=== PATIENT | female | born 1995 | race Caucasian/White ===

== ENCOUNTER 2018-12-04 19:48 | Emergency (ER) | payer OTHER, SELFPAY ==
[2018-12-04 20:00] VITALS: BP 114/79; PULSE 79; RESP 15; TEMP 36.9; O2SAT 98; BMI 23.1
--- NOTE | 2018-12-04 20:32 | ED.EYEPROB ---
HPI - Eye Problem <BOGDAN Rai - Last Filed: 12/04/18 20:36> General Chief complaint: Eye Problems Stated complaint: thinks she has a Sty Time Seen by Provider: 12/04/18 20:03 Source: patient and family Mode of arrival: ambulatory Limitations: no limitations History of Present Illness HPI Narrative: The patient is a 23-year-old female presents with a chief complaint of ?I think I have a stye. She is current smoker, does not use contacts. She denies any visual deficit, fevers nausea vomiting or diarrhea. She noted them today and thinks he might be due to her lash extensions. Review of Systems <BOGDAN Rai - Last Filed: 12/04/18 20:36> Review of Systems GENERAL: Denies chills, fatigue, malaise, fever, sweats. HEENT: See HPI RESPIRATORY: Denies dyspnea, cough, wheezing, hemoptysis, sputum. CARDIOVASCULAR: Denies chest pain, palpitations, orthopnea, edema, GASTROINTESTINAL: Denies nausea, vomiting, abdominal pain, diarrhea, constipation, melena. : Denies dysuria, frequency, incontinence, hematuria, urinary retention. MUSCULOSKELETAL: denies weakness, joint pain, or bony pain SKIN: Denies rash, skin lesions, or other NEUROLOGIC: Denies weakness, headache, numbness, change in speech, confusion, seizures, incoordination. PSYCHIATRIC: No concerning psychosocial issues. 12 point review of systems is negative except for those stated above PFSH <BOGDAN Rai - Last Filed: 12/04/18 20:36> Social History Smoking Status: Current every day smoker Social History Smoking Status: Current every day smoker Exam <BOGDAN Rai - Last Filed: 12/04/18 20:36> Narrative Exam Narrative: GENERAL: This is a well-nourished, well-developed patient, no acute distress HEAD: Atraumatic. Normocephalic. No temporal or scalp tenderness. EYES: Pupils equal round and reactive. Extraocular motions intact. No scleral icterus. No injection or drainage. Two small hordeolums noted upper lid, left eye ENT: Nose without bleeding, purulent drainage or septal hematoma. Throat without erythema, tonsillar hypertrophy or exudate. Uvula midline. Airway patent. NECK: Trachea midline. No JVD or lymphadenopathy. Supple, nontender, no meningeal signs. RESPIRATORY: No cough. No increased respiratory effort. No accessory muscle use. EXTREMITIES: No clubbing, cyanosis, or edema. No joint tenderness, effusion, or edema noted. BACK: Nontender without deformity or crepitance. No flank tenderness. NEURO: AOx3. SKIN: No rash or erythema. Initial Vital Signs Initial Vital Signs: Vital Signs Temperature 98.5 F 12/04/18 20:00 Pulse Rate 79 12/04/18 20:00 Respiratory Rate 15 12/04/18 20:00 Blood Pressure 114/79 12/04/18 20:00 Pulse Oximetry 98 12/04/18 20:00 <Balaji Murillo DO - Last Filed: 12/04/18 21:54> Initial Vital Signs Initial Vital Signs: Vital Signs Temperature 98.5 F 12/04/18 20:00 Pulse Rate 79 12/04/18 20:00 Respiratory Rate 15 12/04/18 20:00 Blood Pressure 114/79 12/04/18 20:00 Pulse Oximetry 98 12/04/18 20:00 Course <BOGDAN Rai - Last Filed: 12/04/18 20:36> Vital Signs - 8 hr 12/04/18 20:00 Temperature 98.5 F Pulse Rate 79 Respiratory Rate 15 Blood Pressure 114/79 Pulse Oximetry 98 <Balaji Murillo DO - Last Filed: 12/04/18 21:54> Vital Signs - 8 hr 12/04/18 20:00 Temperature 98.5 F Pulse Rate 79 Respiratory Rate 15 Blood Pressure 114/79 Pulse Oximetry 98 MDM - Eye Problem <BOGDAN Rai - Last Filed: 12/04/18 20:36> Differential Diagnosis Likely conjunctivitis, hyphema and periorbital cellulitis MDM Narrative Medical decision making narrative: The patient is a 23-year-old female who presents believing that she has a stye. She has no acute findings on exam. Her exam is consistent with a stye. I discussed at length use of warm packs, following up with PCP, monitoring for any visual deficits or spreading redness. Patient has no questions or concerns upon discharge. Discussed ER precautions as well as follow-up indications. Encourage PCP follow-up the next few days. Discharge Plan Departure Patient Disposition: Home Clinical Impression: Hordeolum Qualifiers: Hordeolum type: externum Laterality: left Eyelid: upper Qualified Code(s): H00.014 - Hordeolum externum left upper eyelid Discharge Date/Time: 12/04/18 20:38 Interventions: ED Discharge Assessment Last Done: 12/04/18 20:38 Instructions: DI for Hordeolum Activity Restrictions/Additional Instructions: Please use warm packs on your eye, as we discussed. Please follow up with primary care provider. Please monitor for spreading of redness , worsening or visual deficit. Please come back to emergency department for any acute concerns such as chest pain, shortness of breath or neurological concerns Referrals: [email or web address] [Provider Group] <Balaji Murillo DO - Last Filed: 12/04/18 21:54> Cosign ED Attending Hung Attestation: I was available for consultation during this patient's emergency department encounter
== END 2018-12-04 20:38 | disposition home or self-care (01) ==
PROVIDERS: Emergency Provider Nurse Practitioner Family
DX: H00.014 Hordeolum externum left upper eyelid (principal)
CPT/HCPCS: 99282

== ENCOUNTER → 2021-09-30 09:49 | Outpatient (CLI) | payer OTHER, SELFPAY | PROVIDERS: Visit Provider Physician Assistant | DX: R30.0 Dysuria (principal) | CPT/HCPCS: 87086 ==

== ENCOUNTER 2022-11-24 21:07 | Emergency (ER) | payer OTHER, SELFPAY ==
[2022-11-24 21:21] VITALS: BP 139/83; PULSE 59; RESP 16; TEMP 37.1; O2SAT 100; BMI 23.1
--- NOTE | 2022-11-24 21:43 | ED.ALLEREA ---
HPI - Allergic Reaction General Chief complaint: Allergic Reaction Stated complaint: breaking out in hives after swimming Time Seen by Provider: 11/24/22 21:18 Source: patient Mode of arrival: Ambulatory History of Present Illness HPI narrative: 27-YEAR-OLD FEMALE daily smoker with noncontributory medical history presents with a chief complaint of an itchy rash with hives on her abdomen and arms that popped up after swimming earlier today. She denies any other symptoms such as face, tongue, lip or throat swelling, no trouble breathing, no GI symptoms such as nausea, vomiting or diarrhea. She denies any exposure to other potential triggers, no new foods, lotions, soaps, pets or medications. Related Data Allergies Allergy/AdvReac Type Severity Reaction Status Date / Time No Known Drug Allergies Allergy Verified 11/24/22 21:21 Review of Systems Review of Systems Narrative: GENERAL: Denies chills, fatigue, malaise, fever, sweats. HEENT: Denies sinus pain, ear pain, sore throat, difficulty swallowing, dizziness. RESPIRATORY: Denies dyspnea, cough, wheezing, hemoptysis, sputum. CARDIOVASCULAR: Denies chest pain, palpitations, orthopnea, edema, GASTROINTESTINAL: Denies nausea, vomiting, abdominal pain, diarrhea, constipation, melena. : Denies dysuria, frequency, incontinence, hematuria, urinary retention. MUSCULOSKELETAL: denies weakness, joint pain, or bony pain SKIN: See HPI NEUROLOGIC: Denies weakness, headache, numbness, change in speech, confusion, seizures, incoordination. PSYCHIATRIC: No concerning psychosocial issues. 12 point review of systems is negative except for those stated above Patient History Social History Smoking Status: Current every day smoker Smoking Status: Current every day smoker alcohol intake frequency: 0-2 drinks per day Substance Use Type: does not use Exam Narrative Exam Narrative: GENERAL: [27] year old patient appears stated age. Well-developed patient, in mild distress. HEAD: Atraumatic. Normocephalic. EYES: Pupils equal round and reactive. Extraocular motions intact. No scleral icterus. No injection or drainage. ENT: No face, tongue, lip or throat swelling Nose without bleeding, purulent drainage. Throat without erythema, tonsillar hypertrophy or exudate. Airway patent. NECK: Trachea midline. Non tender CARDIOVASCULAR: Regular rate and rhythm without murmurs, gallops, or rubs. RESPIRATORY: Clear to auscultation. Breath sounds equal bilaterally. No wheezes, rales, or rhonchi. GASTROINTESTINAL: Abdomen soft, non-tender, nondistended. EXTREMITIES: No edema or joint tenderness. BACK: Nontender without deformity or crepitance. No flank tenderness. NEURO: AOx3. SKIN: Pruritic hives on abdomen, arms, blanching Initial Vital Signs Initial Vital Signs: Vital Signs Temperature 98.7 F 11/24/22 21:21 Pulse Rate 59 L 11/24/22 21:21 Respiratory Rate 16 11/24/22 21:21 Blood Pressure 139/83 11/24/22 21:21 Pulse Oximetry 100 11/24/22 21:21 Oxygen Delivery Method Room Air 11/24/22 21:21 Course Orders Ordered: Discontinued Medications Dexamethasone (Dexamethasone 10 Mg/Ml Vial) 10 mg PO NOW ONE Stop: 11/24/22 21:43 Last Admin: 11/24/22 21:50 Dose: 10 mg Documented By: ARI Diphenhydramine HCl (Diphenhydramine 25 Mg Tablet) 50 mg PO NOW ONE Stop: 11/24/22 21:43 Last Admin: 11/24/22 21:51 Dose: 50 mg Documented By: ARI Famotidine (Famotidine 20 Mg Tablet) 20 mg PO BID [place] Last Admin: 11/24/22 21:51 Dose: 20 mg Documented By: ARI Vital Signs Vital signs: Vital Signs - 8 hr 11/24/22 23:28 Temperature 97.5 F L Pulse Rate 64 Respiratory Rate 16 Blood Pressure 114/62 Pulse Oximetry 99 Oxygen Delivery Method Room Air MDM - Allergic Reaction MDM Narrative Medical decision making narrative: [27] year old patient presents with itchy rash Multiple etiologies for patient's symptoms considered including, but not limited to: [Allergic reaction versus anaphylaxis versus other] Prior Charts reviewed in our EMR Primary Historian: patient Patient's history and physical exam are reassuring, this is an isolated allergic reaction with single organ system only, no face, tongue, lip or throat involvement, no respiratory distress or GI complaints. She has significant improvement in her symptoms with above-stated therapies. No indication for further treatment here in the department, she is instructed to take H1 and H2 blockers for the next few days and avoid potential triggers Patient's symptoms improved over duration of stay with above-stated therapies. Findings and discharge diagnosis discussed with patient/family followed by verbalization of understanding Return precautions discussed with patient/family whom verbalize understanding of diagnosis and plan Discharge Plan Departure Patient Disposition: Home Clinical Impression: Allergic reaction Instructions: DI for General Allergic Reactions Activity Restrictions/Additional Instructions: *You have been diagnosed with [allergic reaction] *What to do: *Please continue to take your regular medications as directed. *Please consider the routine use of over the counter antihistamines over the next few days 1. H1 blockers: Benadryl (Diphenhydramine), Zyrtec (Cetirizine), Dot (Fexofenadine) or Claritin (Loratadine) along with, 2. H2 blockers: Famotidine or Cimetidine *If you can please avoid what triggered your reaction today *Please follow up with your primary care provider in 2-3 days, call for an appointment. Let them know you were seen in the Emergency Department and that we ask that you be seen in follow up. We will electronically transmit a record of today's note if your PCP is in our system *If you do not have a primary care provider please contact the [facility] Resource line at [phone]. They will ask some questions about your medical history and help get you set up with a doctor in the community. *Return to Emergency Department if you should have any new, worsening or concerning symptoms, such as swelling of tongue, throat, trouble breathing, or other concerning symptoms Referrals: Miscellaneous,Doctor, MD [Primary Care Provider] - Stand Alone Forms: Patient Portal/API
[2022-11-24] MEDS: DEXAMETHASONE 10 MG/ML VIAL PO (21:50)
[2022-11-24] MEDS: diphenhydrAMINE 25 MG TABLET 50 MG PO (21:51)
[2022-11-24] MEDS: FAMOTIDINE 20 MG TABLET PO (21:51)
[2022-11-24 22:30] VITALS: BP 116/69; PULSE 59; RESP 16; O2SAT 100
--- NOTE | 2022-11-24 22:30 | PC.NURSE ---
Hives have significantly improved. Area on face and right wrist resolved, redness to left upper arm reduced and flattened. Area under bilateral breast reduced and flattened but remains the most significant area of inflammation. Patient reports symptoms have improved and itching has resolved.
[2022-11-24 23:28] VITALS: BP 114/62; PULSE 64; RESP 16; TEMP 36.4; O2SAT 99
== END 2022-11-24 23:28 | disposition home or self-care (01) ==
PROVIDERS: Emergency Provider Emergency Medicine
DX: R21 Rash and other nonspecific skin eruption (principal); T78.40XA Allergy, unspecified, initial encounter
CPT/HCPCS: 99283; A9270; J1100